=== PATIENT | male | born 1975 | race Caucasian/White ===

== ENCOUNTER 2018-05-03 14:07 | Emergency (ER) | payer SELFPAY ==
[~2018-05-03] VITALS: Ht 165.1 cm; Wt 84.4 kg
[2018-05-03 14:09] VITALS: BP 139/90
== END 2018-05-03 14:38 | disposition home or self-care (01) ==
LOC: ED 14:30
DX: K08.89 Other specified disorders of teeth and supporting structures (principal); R22.0 Localized swelling, mass and lump, head; F17.200 Nicotine dependence, unspecified, uncomplicated
CPT/HCPCS: 99283

== ENCOUNTER 2018-06-02 09:21 | Emergency (ER) | payer SELFPAY ==
[~2018-06-02] VITALS: Ht 167.6 cm; Wt 86.9 kg
[2018-06-02 09:24] VITALS: BP 132/78
== END 2018-06-02 11:17 | disposition home or self-care (01) ==
LOC: ED 11:05
DX: T15.02XA Foreign body in cornea, left eye, initial encounter (principal); H16.8 Other keratitis; H20.00 Unspecified acute and subacute iridocyclitis; E11.9 Type 2 diabetes mellitus without complications; X58.XXXA Exposure to other specified factors, initial encounter; Y93.89 Activity, other specified; Y92.89 Other specified places as the place of occurrence of the external cause; Y99.8 Other external cause status
CPT/HCPCS: 99283

== ENCOUNTER 2019-02-09 00:13 | Emergency (ER) | payer SELFPAY ==
[~2019-02-09] VITALS: Ht 166.4 cm; Wt 85.1 kg
--- NOTE | 2019-02-09 01:42 | NUR ---
Break RN: patient discharged with instruction. verbalized understanding.
[2019-02-09 01:45] VITALS: BP 119/79
== END 2019-02-09 01:47 | disposition home or self-care (01) ==
LOC: ED 01:16
DX: S20.212A Contusion of left front wall of thorax, initial encounter (principal); K21.9 Gastro-esophageal reflux disease without esophagitis; E11.9 Type 2 diabetes mellitus without complications; W01.0XXA Fall on same level from slipping, tripping and stumbling without subsequent striking against object, initial encounter; Y93.89 Activity, other specified; Y92.89 Other specified places as the place of occurrence of the external cause; Y99.8 Other external cause status
CPT/HCPCS: 99283